=== PATIENT | female | born 1990 | race Caucasian/White ===

== ENCOUNTER → 2016-05-13 | Emergency (ER) | payer OTHER ==
[~2016-05-13] VITALS: Ht 157.5 cm; Wt 69.9 kg
[2016-05-13 15:53] VITALS: BP 133/75
== END | disposition left against medical advice (07) ==
LOC: M ED 17:04
DX: R10.9 Unspecified abdominal pain (principal); Z53.21 Procedure and treatment not carried out due to patient leaving prior to being seen by health care provider

== ENCOUNTER → 2016-06-12 | Outpatient (REF) | payer OTHER ==
[2016-06-12 14:16] LABS: ALBUMIN 3.7 GM/DL (3.2-5.2); ALBUMIN/GLOBULIN RATIO 1.23 (1.00-1.93); ALKALINE PHOSPHATASE 44 U/L (45-117); ALT/SGPT 23 U/L (12-78); ANION GAP 6 MEQ/L (8-16); AST/SGOT 19 U/L (15-37); BILIRUBIN,TOTAL 0.5 MG/DL (0.2-1.0); BLOOD UREA NITROGEN 7 MG/DL (7-18); CALCIUM LEVEL 8.3 MG/DL (8.5-10.1); CARBON DIOXIDE LEVEL 27 MEQ/L (21-32); CHLORIDE LEVEL 108 MEQ/L (98-107); CHOLESTEROL LEVEL 166 MG/DL (<200); GLOMERULAR FILTRATION RATE > 60.0 (>60); GLUCOSE, FASTING 81 MG/DL (70-105); POTASSIUM SERUM 4.2 MEQ/L (3.5-5.1); SODIUM LEVEL 141 MEQ/L (136-145); TOTAL PROTEIN 6.7 GM/DL (6.4-8.2); TRIGLYCERIDES LEVEL 50 MG/DL (<150)
== END ==
LOC: M LAB REF 13:08
PROVIDERS: ATTEND Family Medicine Addiction Medicine
DX: Z13.220 Encounter for screening for lipoid disorders (principal); R30.0 Dysuria; E04.0 Nontoxic diffuse goiter; Z13.29 Encounter for screening for other suspected endocrine disorder

== ENCOUNTER → 2016-09-02 | Outpatient (REF) | payer OTHER ==
[2016-09-04 08:07] LABS: Lyme Disease IgG Ab 18 kDa Ban Absent (.); Lyme Disease IgG Ab 23 kDa Ban Absent (.); Lyme Disease IgG Ab 28 kDa Ban Absent (.); Lyme Disease IgG Ab 30 kDa Ban Absent (.); Lyme Disease IgG Ab 39 kDa Ban Absent (.); Lyme Disease IgG Ab 41 kDa Ban Present (.); Lyme Disease IgG Ab 45 kDa Ban Absent (.); Lyme Disease IgG Ab 58 kDa Ban Absent (.); Lyme Disease IgG Ab 66 kDa Ban Absent (.); Lyme Disease IgG Ab 93 kDa Ban Absent (.); Lyme Disease IgG West Blot Int Negative (.); Lyme Disease IgG/IgM Antibodie <0.91 ISR (0.00-0.90); Lyme Disease IgM Ab 23 kDa Ban Present (.); Lyme Disease IgM Ab 39 kDa Ban Absent (.); Lyme Disease IgM Ab 41 kDa Ban Present (.); Lyme Disease IgM Ab Quantitati 1.09 index (0.00-0.79); Lyme Disease IgM West Blot Int Positive (.)
== END ==
LOC: M LAB REF 12:27
PROVIDERS: ATTEND Family Medicine Addiction Medicine
DX: A69.20 Lyme disease, unspecified (principal)

== ENCOUNTER 2022-11-04 12:40 | Observation (INO) | payer BC, SELFPAY ==
[~2022-11-04] VITALS: Ht 157.5 cm; Wt 78.7 kg
[~2022-11-04 12:40] MED LIST: HEPARIN SOD (PORCINE) 5000UNITS/ML 1ML VIAL/SYRINGE SQ ONE; IRON65TA2 PO; OMEG10002 PO; VITA100093 PO; VITATAB73 PO; ceFAZolin SOD 2 GM in IV 1 EA IV ONE
[2022-11-04] MEDS ORDERED: ONDANSETRON 4MG 2ML VIAL As Ordered ONE (12:42)
[2022-11-04] MEDS ORDERED: ROCURONIUM BROMIDE 50MG/5ML VIAL As Ordered ONE ×2 (12:42→16:01)
[2022-11-04] MEDS ORDERED: LIDOCAINE 2% 100MG/5ML SDV (FOR ANES.) As Ordered ONE (12:42)
[2022-11-04] MEDS ORDERED: propofoL 200 MG/20 ML VIAL As Ordered ONE (12:42)
[2022-11-04] MEDS ORDERED: fentaNYL 250 MCG/5 ML INJECTION As Ordered ONE (12:43)
[2022-11-04] MEDS ORDERED: MIDAZOLAM INJ 2MG/2ML VIAL As Ordered ONE (12:43)
[2022-11-04] MEDS ORDERED: LR 1,000 ML IV SCH ×3 (13:40→19:30)
[2022-11-04] MEDS ORDERED: SUGAMMADEX SODIUM 500 MG/5 ML VIAL (BRIDION) As Ordered ONE (15:14)
[2022-11-04] MEDS ORDERED: GENTAMICIN SULF 80MG/2ML VIAL As Ordered ONE (15:17)
[2022-11-04] MEDS ORDERED: SCOPOLAMINE 1MG TRANSDERMAL PATCH As Ordered ONE (16:17)
[2022-11-04] MEDS ORDERED: fentaNYL 100 MCG/2 ML INJECTION As Ordered ONE (18:19)
[2022-11-04] MEDS ORDERED: dexmedeTOMIDine (4MCG/ML)200MCG/50ML BTL (PRECEDEX) As Ordered ONE (18:26)
[2022-11-04] MEDS ORDERED: oxyCODONE 5MG TAB PO PRN (18:45)
[2022-11-04] MEDS ORDERED: ONDANSETRON 4MG 2ML VIAL IV PRN ×2 (18:45→19:30)
[2022-11-04] MEDS ORDERED: HYDROMORPHONE HCL 0.5 MG/ 0.5 ML SYRINGE IV PRN (18:45)
[2022-11-04] MEDS ORDERED: ACETAMINOPHEN TAB 650MG DOSE (2X325MG) PO PRN (19:30)
[2022-11-04] MEDS ORDERED: PERCOCET 5MG/325MG TAB PO PRN (19:30)
[2022-11-04] MEDS ORDERED: traMADol 50 MG TAB PO PRN (19:30)
[2022-11-04] MEDS: fentaNYL 100 MCG/2 ML INJECTION IV PRN ×4 (19:46→20:18)
[2022-11-04] MEDS ORDERED: ceFAZolin SOD 2 GM in IV 1 EA IV ONE (20:00)
[2022-11-04 20:34] VITALS: BP 115/73; TEMP 97.7; O2SAT 95
[2022-11-04 21:00] VITALS: BP 114/74; TEMP 97.5; O2SAT 97
[2022-11-04 21:30] VITALS: BP 115/73; TEMP 97.9; O2SAT 97
[2022-11-04 22:30] VITALS: BP 113/71; TEMP 98.2; O2SAT 95
[2022-11-04 23:30] VITALS: BP 109/66; TEMP 98.1; O2SAT 94
[2022-11-05 00:30] VITALS: BP 101/63; TEMP 98.2; O2SAT 95
[2022-11-05 01:30] VITALS: BP 100/64; TEMP 97.6; O2SAT 94
[2022-11-05 05:30] VITALS: BP 98/60; TEMP 97.7; O2SAT 95
[2022-11-05 06:40] VITALS: BP 102/64
[2022-11-05] MEDS ORDERED: PERCOCET PO (08:58)
[2022-11-05 10:15] VITALS: BP 106/74; TEMP 98; O2SAT 96
== END 2022-11-05 11:40 | disposition home or self-care (01) ==
LOC: M SDC 12:40 → M ED INP 12:41 → M MS5PR 20:34
PROVIDERS: ADMIT Plastic Surgery Surgery of the Hand; ATTEND Plastic Surgery Surgery of the Hand
DX: N64.81 Ptosis of breast (principal); Z91.018 Allergy to other foods
CPT/HCPCS: 19316; 96360; 96361; C9290; J0665; J0690; J1100; J1580; J2250; J2405; J3010

== ENCOUNTER 2024-01-19 09:39 | Emergency (ER) | payer BC, SELFPAY ==
[~2024-01-19] VITALS: Ht 157.5 cm; Wt 74.4 kg
[~2024-01-19 09:39] MED LIST changes: -HEPARIN SOD (PORCINE) 5000UNITS/ML 1ML VIAL/SYRINGE SQ ONE; +PERCOCET PO; -ceFAZolin SOD 2 GM in IV 1 EA IV ONE
[2024-01-19 09:48] VITALS: BP 100/60; TEMP 96.8; O2SAT 100
== END 2024-01-19 12:25 | disposition left against medical advice (07) ==
LOC: M ED 09:39
DX: Z53.21 Procedure and treatment not carried out due to patient leaving prior to being seen by health care provider (principal)

== ENCOUNTER 2024-12-12 08:36 | Emergency (ER) | payer BC ==
[~2024-12-12] VITALS: Ht 157.5 cm; Wt 68.2 kg
[2024-12-12 09:52] LABS: APPEARANCE, URINE CLEAR (CLEAR); BACTERIA, URINE AUTO NEGATIVE (NEGATIVE); BILIRUBIN, URINE AUTO NEGATIVE (NEGATIVE); BLOOD, URINE BLOOD 2+ (NEGATIVE); GLUCOSE, URINE (UA) AUTO NEGATIVE (NEGATIVE); KETONE, URINE AUTO NEGATIVE (NEGATIVE); LEUKOCYTE ESTERASE, URINE AUTO NEGATIVE (NEGATIVE); MUCUS, URINE SMALL (NEGATIVE); NITRITE, URINE AUTO NEGATIVE (NEGATIVE); PROTEIN, URINE AUTO NEGATIVE (NEGATIVE); RBC, URINE AUTO 12 /HPF (0-3); SPECIFIC GRAVITY URINE AUTO 1.016 (1.002-1.035); SQUAMOUS EPITHELIAL CELL UR AU 2 /HPF (0-6); UROBILINOGEN, URINE AUTO 0.2 mg/dL (0.0-2.0); WBC, URINE AUTO 2 /HPF (0-3)
[2024-12-12 09:54] LABS: BASO # 0.1 10^3/uL (0.0-0.2); BASO % 0.7 % (0.0-1.0); EOS # 0.1 10^3/uL (0.0-0.5); EOS % 0.7 % (0.0-3.0); LYMPH # 1.2 10^3/uL (1.5-5.0); LYMPH % 18.1 % (24.0-44.0); MONO # 0.5 10^3/uL (0.0-0.8); MONO % 6.7 % (2.0-8.0); NEUTROPHILS # 4.9 10^3/uL (1.5-8.5); NEUTROPHILS % 73.5 % (36.0-66.0); PLATELET COUNT, AUTOMATED 281 10^3/uL (150-450)
[2024-12-12 10:18] LABS: CALCIUM LEVEL 8.6 MG/DL (8.5-10.1); CARBON DIOXIDE LEVEL 25 MMOL/L (20-31); CHLORIDE LEVEL 107 MMOL/L (98-107); CREATININE FOR GFR 0.77 MG/DL (0.55-1.30); GLOMERULAR FILTRATION RATE > 90.0 (>60); HCG, SERUM QUANTITATIVE < 2.6 MIU/ML (<4.2); POTASSIUM SERUM 4.1 MMOL/L (3.5-5.1); SODIUM LEVEL 139 MMOL/L (136-145)
[2024-12-12 13:23] VITALS: BP 105/65; TEMP 98.7; O2SAT 100
== END 2024-12-12 13:29 | disposition home or self-care (01) ==
LOC: M ED 08:36
DX: N92.0 Excessive and frequent menstruation with regular cycle (principal); N88.8 Other specified noninflammatory disorders of cervix uteri; Z91.018 Allergy to other foods